=== PATIENT | male | born 1985 | race Caucasian/White ===

== ENCOUNTER 2018-10-18 07:59 | Emergency (ER) | payer SELFPAY ==
[2018-10-18 08:20] VITALS: BP 146/72
--- NOTE | 2018-10-25 08:43 | UC ---
Eye Complaint HPI - HPI Summary HPI Summary: Pt with irritation to left upper eye lid yesterday. Progressive today. No pain, mild edema and erythema no open wounds. no trauma No eye pain, mild clear tearing. no vision changes no corrective lenses Tdap utd medications reviewed - History of Current Complaint Chief Complaint: UCEye Stated Complaint: LEFT EYE SWOLLEN/IRRITATED Time Seen by Provider: 10/18/18 08:38 Hx Obtained From: Patient Pain Intensity: 3 Pain Scale Used: 0-10 Numeric - Allergies/Home Medications Allergies/Adverse Reactions: Allergies Allergy/AdvReac Type Severity Reaction Status Date / Time No Known Allergies Allergy Verified 10/18/18 08:18 PMH/Surg Hx/FS Hx/Imm Hx Previously Healthy: Yes - Surgical History Surgical History: None - Family History Known Family History: Positive: Non-Contributory - Social History Occupation: Employed Full-time Alcohol Use: Weekly Alcohol Amount: 3-4 times weekly Substance Use Type: Marijuana Substance Use Comment - Amount & Last Used: occasional Smoking Status (MU): Heavy Every Day Tobacco Smoker Type: Cigarettes Amount Used/How Often: 1/2PPD Review of Systems All Other Systems Reviewed And Are Negative: Yes Constitutional: Positive: Negative Skin: Positive: Other - lefy eye lid Eyes: Positive: Negative Physical Exam - Summary Physical Exam Summary: Vital Signs Reviewed: Yes A+Ox3, no distress, joking, no distress Eyes: Conjunctiva Clear, SOPHIE. EOM intact and full, crisp fundoscopic Pt left upper lid +edema, erythma. no crepitus, no wound everted lid - no stye ENT: Hearing grossly normal TM x 2 clear, mmoist, uvula midline, no exudate, no erythema Neck: Positive: Supple Respiratory: Positive: No respiratory distress, No accessory muscle use + CTA throughout no w/r Cardiovascular: RRR nl s1, s2 no m/r CBT <2 sec abd soft + BS nt/nd no guarding, no distension Musculoskeletal Exam: CARDOSO x 4 without difficulty Strength Intact, + full AROM upper extremities without difficulty Neurological: Positive: Alert, + sensation throughout Psychological: Positive: Normal Response To Family Skin: Positive: no rash, no ecchymosis Triage Information Reviewed: Yes Vital Signs: Initial Vital Signs Temp 99.4 F 10/18/18 08:15 Pulse 94 10/18/18 08:15 Resp 16 10/18/18 08:15 BP 146/72 10/18/18 08:15 Pulse Ox 98 10/18/18 08:15 Eye Complaint Course/Dx - Course Course Of Treatment: Pt with progressive left eyelid edema, no pain in eye or vision changes tdap utd vss left eyelid edema and erythema - suspect periorbital cellulitis abx warm soaks strict return precautions - Differential Dx/Diagnosis Provider Diagnosis: Periorbital cellulitis of left eye Discharge - Sign-Out/Discharge Documenting (check all that apply): Patient Departure All imaging exams completed and their final reports reviewed: No Studies - Discharge Plan Condition: Stable Disposition: HOME Prescriptions: Amoxicillin/Clavulanate TAB* [Augmentin TAB 875*] 875 mg PO BID #20 tab Patient Education Materials: Cellulitis (ED) Referrals: [facility] [place] [facility] [place] [facility] [Outside] No Primary Care Phys,NOPCP [Primary Care Provider] - Additional Instructions: - Take antibiotics as prescribed until gone - Apply wet, warm washcloth to your eye for 15 min, 2-3 times a day - If you have increased swelling, pain, pain with eye movement, vision changes or ANY other concerns it is recommended you go to the emergency department for further evaluation You have been given the contact information for Merlyn [place] - she will assist in scheduling with a primary care provider and can assist you with insurance - Billing Disposition and Condition Condition: STABLE Disposition: Home
== END 2018-10-18 09:16 | disposition home or self-care (01) ==
LOC: UCCORT 07:59
DX: H05.012 Cellulitis of left orbit (principal); F17.210 Nicotine dependence, cigarettes, uncomplicated
CPT/HCPCS: 99202; G0463